=== PATIENT | female | born 1990 | race Caucasian/White ===

== ENCOUNTER → 2016-09-18 | Outpatient (CLI) | payer OTHER ==
--- NOTE | 2016-09-18 11:25 | REP ---
CERVICAL SPINE, EIGHT VIEWS: HISTORY: Neck pain. There is no acute fracture or subluxation. The C4-5 through C7-T1 intervertebral discs are decreased in height consistent with disc degeneration. The neural foramina are patent. IMPRESSION: Degenerative change as described above. Signed by Arthur Perez MD 09/18/2016 12:05 P
== END ==
LOC: M LRY 10:15
PROVIDERS: ATTEND Family Medicine
DX: R51 Headache (principal)

== ENCOUNTER → 2016-11-12 | Outpatient (REF) | payer OTHER | LOC: M SFHCLERA 17:21 | PROVIDERS: ATTEND Family Medicine | DX: J01.00 Acute maxillary sinusitis, unspecified (principal) ==